=== PATIENT | female | born 2000 | race Caucasian/White ===

== ENCOUNTER 2019-12-14 15:04 | Emergency (ER) | payer OTHER ==
[~2019-12-14] VITALS: Ht 162.6 cm; Wt 63.5 kg
[2019-12-14] MEDS ORDERED: TOPROL XL25 MG PO (15:20)
[2019-12-14] MEDS ORDERED: SPIRONOLACTONE50 MG PO (15:21)
[2019-12-14] MEDS ORDERED: PROGESTERO50 MG/1 M3 IM (15:21)
[2019-12-14 15:51] LABS: INFLUENZA A ANTIGEN Negative (Negative); INFLUENZA B ANTIGEN Negative (Negative)
[2019-12-14 16:00] VITALS: BP 150/70
[2019-12-14] MEDS ORDERED: ONDANSETRON HCL4 M2 PO (16:00)
== END 2019-12-14 16:00 | disposition home or self-care (01) ==
LOC: M.ERS 15:04
PROVIDERS: Nurse Practitioner Family
DX: B34.9 Viral infection, unspecified (principal); Z20.828 Contact with and (suspected) exposure to other viral communicable diseases; I10 Essential (primary) hypertension; Z79.899 Other long term (current) drug therapy